=== PATIENT | male | born 1935 | race Caucasian/White ===

== ENCOUNTER → 2018-06-15 | Outpatient (CLI) | payer OTHER, MEDICARE ==
[~2018-06-15] VITALS: Ht 167.6 cm; Wt 72.6 kg
[~2018-06-15] MED LIST: ASPIR 8181 MG PO; LIPITOR10 MG PO; NORVASC5 MG PO; VITAMIN D32000 UNI1 PO
--- NOTE | 2018-06-18 11:46 | P ---
[facility] [place] [place] [address] PROCEDURE REPORT Name: DAVID JOHN Room #: REG [facility]#: [id number] Admission: 06/15/18 ������������������ Attend Phys: Kenney Lopez MD Discharge: ������������������ Date of : 35 Report #: [id number] THIS REPORT FOR: //name// CC: Kenney Preston DATE OF SERVICE: 06/15/2018 BRIEF HISTORY: The patient is an 83-year-old male with history of colon resection for colon cancer in 1989. He presents for high risk screening colonoscopy. He also has a history of multiple colon polyps. PREOPERATIVE DIAGNOSIS: High risk screening colonoscopy due to personal history of colon cancer and history of multiple colon polyps. POSTOPERATIVE DIAGNOSES: 1. Multiple colon polyps. 2. Moderate diverticulosis coli. 3. Rectosigmoid anastomosis, unremarkable. MEDICATIONS: Deep sedation with propofol per anesthesia. SPECIMENS: 1. Hepatic flexure polyps x 2. 2. Mid transverse colon polyp. 3. Proximal transverse colon polyps x 3. 4. Polyp at 30 cm. ESTIMATED BLOOD LOSS: 3 mL. PROCEDURE: Colonoscopy to cecum and terminal ileum with snare polypectomy, biopsy and tattoo injection. FINDINGS: Prior to propofol sedation, procedure of colonoscopy discussed with the patient as well as potential risks, benefits and complications. He indicates he understands and desires to proceed. DESCRIPTION OF PROCEDURE: The patient in left lateral decubitus position, digital examination was completed, which revealed no abnormalities. Subsequently, the Julep video colonoscope was introduced in the rectum, advanced under direct vision to the cecum. Done with minimal difficulty. The cecum was identified by the ileocecal valve and the appendiceal orifice. I was able to visualize the distal segment of the terminal ileum, which was inspected and noted to be unremarkable. At that point, the scope was slowly withdrawn and careful circumferential views were obtained. Upon slow withdrawal of the scope, [facility] [address] [place] [address] PROCEDURE REPORT Name: ALVARODAVID OWENDERICK Room #: REG [facility].#: [id number] Admission: 06/15/18 ������������������ Attend Phys: Kenney Lopez MD Discharge: ������������������ Date of : 35 Report #: [id number] the prep was good. The mucosa was within normal limits, normal vascular pattern, normal light reflex. As we withdrew the scope, 2 diminutive polyps were seen and removed with biopsy forceps at the hepatic flexure. In the proximal transverse colon, there were 3 flat polyps seen. They ranged in size from about 5 mm to 10 mm. The larger one was removed with saline-assisted snare polypectomy. We were able to remove the polyps with a cold snare. The scope was further withdrawn and another diminutive polyp was seen and removed with biopsy forceps in the mid transverse colon. Also, another diminutive polyp was removed with biopsy forceps from 30 cm. In addition, there was noted to be [id number]-[id number] sigmoid diverticular disease without endoscopic evidence of diverticulitis. The scope was withdrawn in the rectum and no abnormalities were seen. On retroflexion, small hemorrhoids were seen. Scope was withdrawn. The patient tolerated the procedure well. CONDITION OF THE PATIENT UPON DISCHARGE: Following procedure, the patient drowsy, arousable and conversant and will be discharged home when fully ambulatory. INSTRUCTIONS TO THE PATIENT AND FAMILY AT THE TIME OF DISCHARGE: The patient with finding of 7 polyps today. All polyps removed. We will follow up on the path. However, in view of the fact that the larger polyp at the proximal transverse colon was removed by piecemeal polypectomy, we will have the patient return in 2 years for repeat high risk screening colonoscopy. In addition, tattoo dotson were applied laterally to the polypectomy site in the proximal transverse colon. ��������������������������������������������� <ELECTRONICALLY SIGNED> ���������������������������������������� By: Kenney Lopez MD ��������������������������������������������� 06/18/18 [id number] Kenney Lopez MD /nt
--- NOTE | 2018-06-18 18:05 | PATH ---
[facility] [address] [place] [address] PATHOLOGY RPT PROCEDURE Name: DAVID JOHN Room #: REG [facility] M..#: [id number] ������������������ Admission: 06/15/18 ������������������ Date of : 35 Discharge: Report #: [id number] Path Case #: [id number] [facility] Accession Number: [id number] . 01 Material submitted: . PART A: hepatic flexure - BIOPSY POLYP AT HEPATIC FLEXURE X2 PART B: colon - BIOPSY POLYP AT MID TRANSVERSE COLON. Modifiers: mid, transverse PART C: colon - POLYP AT PROXIMAL TRANSVERSE COLON X3. Modifiers: proximal, transverse PART D: colon - BIOPSY POLYP AT 30CM . 01 Clinical history: . Pre-OP DX: Hx polyps Post-OP DX: Colon polyps, diverticulosis . 02 Diagnosis: A. Polyp x2, hepatic flexure, endoscopic biopsy: - Tubular adenoma x2. - Negative for high-grade dysplasia. . B. Polyp, at mid transverse colon, endoscopic biopsy: - Tubular adenoma, multiple fragments. - Negative for high-grade dysplasia. . C. Polyp x3, at proximal transverse colon, endoscopic biopsy: - Tubular adenoma, multiple fragments. - Negative for high-grade dysplasia. . D. Polyp, at 30 cm, endoscopic biopsy: - Tubular adenoma. - Negative for high-grade dysplasia. . (IUV:sheepskin pickler; 06/18/2018) MBR/06/18/2018 . 02 Electronically signed: . Amanda Rainey MD, Pathologist NPI- [id number] . 01 Gross description: . A. Received in formalin labeled "David John BX polyp at hepatic flexure x2," are 3 segments of mcpherson soft tissue measuring 0.9 x 0.7 x 0.2 cm in aggregate dimensions and ranging from 0.3 to 0.4 cm in maximum dimension. The specimen is submitted entirely in cassette A1. . B. Received in formalin labeled "David John BX polyp mid transverse [address] [address] PATHOLOGY RPT PROCEDURE Name: DAVID JOHN BETTERTON Room #: REG [facility] Scarlett#: [id number] ������������������ Admission: 06/15/18 ������������������ Date of : 35 Discharge: Report #: [id number] Path Case #: [id number] colon," are multiple segments of mcpherson soft tissue measuring 1.0 x 0.6 x 0.1 cm in aggregate dimensions. The specimen is filtered and entirely submitted in cassette B1. . C. Received in formalin labeled "David John, polyp at proximal transverse colon x3," are multiple segments of mcpherson soft tissue measuring 2.3 x 1.2 x 0.1 cm in aggregate dimensions. The specimen is filtered and entirely submitted in cassette C1. . D. Received in formalin labeled "David John, polyp at 30 cm," is a single segment of mcpherson soft tissue measuring 0.6 cm in maximum dimension. The specimen is entirely submitted in cassette D1. (TSD; 06/15/2018) TOB/TOB . 02 Pathologist provided ICD-10: D12.3, D12.6 . 02 CPT . 448623, 338661, [id number], [id number] Specimen Comment: A courtesy copy of this report has been sent to Specimen Comment: [phone]. Specimen Comment: Report sent to / DR CORONA Performed at: [address], [place] [id number] MD Rubén Arellano MD Phone: [phone] Performed at: [address] [id number] MD Amanda Rainey MD Phone: [phone]
== END | disposition home or self-care (01) ==
LOC: GI 09:18
DX: Z12.11 Encounter for screening for malignant neoplasm of colon (principal); Z86.010 Personal history of colon polyps; D12.3 Benign neoplasm of transverse colon; D12.5 Benign neoplasm of sigmoid colon; K57.30 Diverticulosis of large intestine without perforation or abscess without bleeding; Z87.891 Personal history of nicotine dependence; Z95.1 Presence of aortocoronary bypass graft; E78.00 Pure hypercholesterolemia, unspecified; I10 Essential (primary) hypertension
CPT/HCPCS: 62110; 62900